=== PATIENT | male | born 1975 | race Caucasian/White ===

== ENCOUNTER 2023-11-06 05:38 | Emergency (ER) | payer OTHER, MEDICAID | END 2023-11-06 06:10 | disposition home or self-care (01) | LOC: FB.ED 05:38 | DX: H61.21 Impacted cerumen, right ear (principal) | CPT/HCPCS: 69209; 99282; 99283-25 ==

== ENCOUNTER 2025-01-03 20:58 | Emergency (ER) | payer OTHER, MEDICAID | END 2025-01-03 21:35 | disposition home or self-care (01) | LOC: FB.ED 20:58 | DX: S80.11XA Contusion of right lower leg, initial encounter (principal); W20.8XXA Other cause of strike by thrown, projected or falling object, initial encounter; Y93.89 Activity, other specified; Y99.0 Civilian activity done for income or pay | CPT/HCPCS: 99283 ==